=== PATIENT | female | born 1945 | race Caucasian/White ===

== ENCOUNTER 2024-11-16 14:19 | Emergency (ER) | payer MEDICARE ==
[2024-11-16] MEDS ORDERED: Ketorolac Tromethamine 30 MG (1 mL) VIAL ONE (14:55)
[2024-11-16 15:26] LABS: #Basophils Less than 0.03 10x3/uL (0.0-0.2); #Eosinophils Less than 0.03 10x3/uL (0.0-0.5); #Monocytes 0.77 10x3/uL (0.0-1.1); #Neutrophils 10.65 10x3/uL (1.5-8.4); %Basophils 0.2 % (0.0-2.0); %Eosinophils 0.1 % (0.0-6.0); %Lymphocytes 8.7 % (18.0-47.0); %Monocytes 6.1 % (0.0-10.0); %Neutrophils 84.5 % (40.0-75.0); Hematocrit 37.8 % (34.9-44.5); Hemoglobin 12.6 g/dL (12.0-15.5); Mean Corpuscular Hemoglobin 28.7 pg (27.0-33.0); Mean Corpuscular Volume 86.1 fL (81.6-98.3); Platelet Count 192 10x3/uL (150-450); Red Blood Cell (RBC) Count 4.39 10x6/uL (3.90-5.03); White Blood Cell (WBC) Count 12.59 10x3/uL (3.5-10.5)
[2024-11-16 15:36] LABS: ALT (SGPT) 15 U/L (Less than 34); AST (SGOT) 19 U/L (11-34); Albumin 3.8 g/dL (3.1-4.5); Alkaline Phosphatase 80 U/L (40-110); Anion Gap 13 mmol/L (10-20); BUN (Urea Nitrogen) 19 mg/dL (9.8-20.1); Bilirubin, Total 0.7 mg/dL (0.3-1.2); Calc. Creatinine Clearance 0 mL/min (70-130); Calcium 9.7 mg/dL (7.8-10.44); Carbon Dioxide 27 mmol/L (23-31); Chloride 103 mmol/L (98-107); Globulin 3.5 g/dL (2.4-3.5); Glucose 101 mg/dL (83-110); Potassium 3.6 mmol/L (3.5-5.1); Sodium 139 mmol/L (136-145)
[2024-11-16 16:01] LABS: Glucose, Urine (Dipstick) >=1000 mg/dL (Negative); Leukocyte Small (Negative); Protein, Urine (Dipstick) Negative (Neg-Trace); Specific Gravity, Urine 1.015 (1.005-1.030)
[2024-11-16 16:35] LABS: CAUTI Indications for Culture Pelvic or flank pain
[2024-11-16 16:36] LABS: Mucous/LPF 1+ LPF (<2+)
[2024-11-16 16:37] LABS: Bacteria/HPF 4+ HPF (None Seen)
[2024-11-16 16:39] LABS: Urine Culture Reflex Yes Yes
== END 2024-11-16 16:40 | disposition home or self-care (01) ==
LOC: CSHERS 14:19
DX: N39.0 Urinary tract infection, site not specified (principal); R19.7 Diarrhea, unspecified; E11.9 Type 2 diabetes mellitus without complications; I10 Essential (primary) hypertension; F17.290 Nicotine dependence, other tobacco product, uncomplicated
CPT/HCPCS: 80053; 81001; 85025; 87077; 87086; 87186; 96361; 96374; 99284; J1885